=== PATIENT | male | born 1970 | race Caucasian/White ===

== ENCOUNTER 2021-05-25 09:47 | Emergency (ER) | payer OTHER, SELFPAY ==
[2021-05-25 10:14] VITALS: BP 166/105; PULSE 93; RESP 16; TEMP 36.3; O2SAT 99; BMI 20.3
--- NOTE | 2021-05-25 10:34 | ED_ITS ---
HPI - Extremity Problem General: Chief complaint: Extremity Injury, Upper Stated complaint: FB/hook in left arm Time Seen by Provider: 05/25/21 09:48 History of Present Illness: HPI Narrative: Patient was out fishing got a fishhook into left forearm. He is unable to remove by himself MD Complaint: other (Florien in left forearm) Onset (ago): hour(s) Associated symptoms: Deny fever(s) Review of Systems Const: Denies: fever(s) or chills Skin/Breast: Reports: other (Florien embedded in left forearm) Psych: Denies: anxiety or depression Physical Exam Const: COMMON NORMALS: no acute distress Psych: COMMON NORMALS: mental status grossly normal Skin: OTHER: Large fishhook embedded in left forearm I was able to remove it without difficulty after lidocaine prep I push fishhook through about an inch from the entry wound cut off the end and remove the fishhook back through the original entry wound. Patient has good movement of all distal extremities without difficulty. Bleeding controlled Procedures Foreign Body Removal Time Out Performed: yes Site: left and upper extremity Description of foreign body: fish hook Sedation/Analgesia: none Technique: manual removal and removal with forceps Confirmed by:: direct visualization Complications: none Neurovascular: normal distal pulse, normal capillary fill, distal light touch sensation intact, distal motor function normal and no signs of compartment syndrome Course Vital Signs: Vital signs: Vital Signs Temperature 97.3 F L 05/25/21 10:14 Pulse Rate 93 05/25/21 10:14 Respiratory Rate 16 05/25/21 10:14 Blood Pressure 166/105 05/25/21 10:14 Pulse Oximetry 99 05/25/21 10:14 Discharge Plan Discharge Patient Disposition: Home Clinical Impression: Fish hook in forearm Condition: Stable Prescriptions: New cephalexin 500 mg capsule 500 mg PO Q8H 7 Days Qty: 21 RF: 0 Discharge Orders: Discharge ED (Routine); Ordered 05/25/21 Ordered By: George Monique Discharge Diet: Usual diet Discharge Activity: Resume usual activity Patient Instructions: Puncture Wound (ED) Activity Restrictions/Additional Instructions: Follow-up with medical provider as directed. Take medications as prescribed. Return to the ER or your medical provider if condition worsens. Please read and understand discharge instructions. If any questions ask please. Coding Level of Care Code ED Community Development Manager for Shani Isbell
[2021-05-25] MEDS: tetanus-dipt-pertussis 0.5 mL SDV IM (10:39)
== END 2021-05-25 10:51 | disposition home or self-care (01) ==
PROVIDERS: Emergency Provider Nurse Practitioner Family
DX: S51.842A Puncture wound with foreign body of left forearm, initial encounter (principal); W26.8XXA Contact with other sharp object(s), not elsewhere classified, initial encounter; Z23 Encounter for immunization
CPT/HCPCS: 90471; 90715; 99282

== ENCOUNTER 2022-08-07 14:32 | Emergency (ER) | payer OTHER, SELFPAY ==
[2022-08-07 14:40] VITALS: BP 159/85; PULSE 86; RESP 16; TEMP 36.9; O2SAT 99; BMI 20.3
--- NOTE | 2022-08-07 16:25 | XRR_ITS ---
PROCEDURE INFORMATION: Exam: XR Right Elbow Exam date and time: 08/07/2022 4:28 PM Age: 52 years old Clinical indication: Swelling; Elbow; Right; Additional info: Cellulitis/abscess TECHNIQUE: Imaging protocol: Radiologic exam of the Right elbow. Views: 1 or 2 views. COMPARISON: No relevant prior studies available. FINDINGS: Bones/joints: Mild disc triceps tendon degenerative calcification. Soft tissues: Normal. XR/XR elbow RT 2V [id number] IMPRESSION: 1. No acute findings. 2. Mild disc triceps tendon degenerative calcification.
[2022-08-07 16:52] LABS: Basophils # 0.1 10^3/uL (0.0-0.1); Basophils % 0.6 %; Eosinophils # 0.3 10^3/uL (0.0-0.8); Eosinophils % 3.4 %; Hematocrit 45.1 % (42.0-52.0); Hemoglobin 14.7 g/dL (11.7-16.6); Lymphocytes # 3.9 10^3/uL (0.8-4.8); Lymphocytes % 38.8 %; Mean Corpuscular HGB Conc 32.6 g/dL (30.0-36.0); Mean Corpuscular Hemoglobin 29.3 pg (28.0-34.0); Mean Corpuscular Volume 89.8 fl (80-94); Mean Platelet Volume 9.1 fL (7.4-10.4); Monocytes # 0.8 10^3/uL (0.2-0.9); Monocytes % 7.6 %; Neutrophils # 4.88 10^3/uL (1.8-7.7); Neutrophils % 49.1 %; Nucleated Red Blood Cells % 0 %; Platelet Count 363 10^3/cmm (130-400); Red Blood Count 5.02 10^6/uL (4.1-5.3); Red Cell Distribution Width 13.1 % (12.1-15.1); White Blood Count 9.9 10^3/uL (4.0-10.0)
[2022-08-07 17:20] LABS: Alanine Aminotransferase 35 U/L (0-41); Albumin Level 3.9 g/dL (3.5-5.2); Alkaline Phosphatase 117 U/L (40-130); Anion Gap 13.6 (5-19); Aspartate Amino Transferase 25 U/L (0-40); Blood Urea Nitrogen 12 mg/dL (6-20); Calcium 9.3 mg/dL (8.5-10.5); Carbon Dioxide 30 mmol/L (22-29); Chloride 98 mmol/L (98-107); Globulin 3.4 g/dL (1.3-4.6); Glomerular Filtration Rate 118.9 mL/min (90-130); Glucose 123 mg/dL (65-115); Lactate (Lactic Acid level) 2.1 mmol/L (0.5-2.2); Osmolality Calculated 287 mOsm/kg (285-295); Potassium 3.6 mmol/L (3.5-5.1); Sodium 138 mmol/L (136-145); Total Bilirubin 0.3 mg/dL (0.15-1.2); Total Protein 7.3 g/dL (6.6-8.7)
[2022-08-07] MEDS: clindamycin 600 MG/50 ML PREMIX 100 MG IV (17:44)
--- NOTE | 2022-08-07 17:51 | W.ED.WOUNDLC ---
Documented by User: Es Goldstein, GUIDANCE AND CONTROL SYSTEM ENGINEER-C 08/07/22 18:37 HPI - Wound/Laceration General: Chief Complaint: Wound/Laceration Stated Complaint: arm abnormality Time Seen by Provider: 08/07/22 15:57 History of Present Illness: 52-year-old male is in today for an abscess on his arm. He reports that he is a diabetic. He reports that he recently got a tattoo on his right forearm and then shortly after that he was working outside and got poison pam in the area of the tattoo. He reports that he must have scratched one of the sores and it became infected. He reports that for almost a week on his right forearm he has had an infected wound. He denies any fever, chills, nausea, vomiting. He reports that his blood sugars have been running okay at home. He reports that the wound is oozing and draining. He denies significant pain but is starting to feel a little more pain in the arm and even some stiffness in the joint of the elbow and the wrist. Associated symptoms: Denies chills or fever(s) Review of Systems Const: Reports: body aches; Denies: fever(s) or chills Card: Denies: chest pain, palpitations or irregular heart rhythm Resp: Denies: dyspnea, productive cough or non-productive cough Musc: Reports: joint stiffness (Right elbow and right wrist) Skin/Breast: Reports: erythema, skin swelling and sores Physical Exam Const: COMMON NORMALS: no acute distress, patient oriented x3 and alert Resp: COMMON NORMALS: normal respiratory effort, No use of accessory muscles and clear to auscultation bilaterally AUSCULTATION: clear to auscultation bilaterally Cardio: COMMON NORMALS: regular rate, regular rhythm, S1 normal heart sound present and S2 normal heart sound present RATE: regular rate RHYTHM: regular rhythm HEART SOUNDS: S1 normal heart sound present and S2 normal heart sound present Extremity: NARRATIVE EXTREMITY EXAM: Right forearm just distal to the elbow there is an approximate 3 cm diameter wound. There is mild surrounding erythema and swelling. The wound is covered with whitish-martinez eschar. Neuro: COMMON NORMALS: patient oriented x3 SENSORIUM/ORIENTATION: Yes alert Procedures Abscess I/D Site: upper extremity (Right forearm) Sedation/analgesia: none Local Anesthetic: lidocaine 1% (1.5 cc) Technique: incised with #11 blade (The wound is mostly open but the 11 blade is used to debride some of the eschar) Amount of fluid expressed (mL): 0.25 Irrigation: Yes (Irrigated with normal saline flushes x2) Course Vital Signs: Vital signs: Vital Signs Temperature 98.5 F 08/07/22 14:40 Pulse Rate 87 08/07/22 18:30 Respiratory Rate 16 08/07/22 14:40 Blood Pressure 134/78 08/07/22 18:30 Pulse Oximetry 99 08/07/22 14:40 Oxygen Delivery Me thod 08/07/22 14:40 MDM - Wound/Laceration Medical Decision Making Patient is a diabetic patient in today for cellulitis and abscess. Given the increased arm pain and joint stiffness and the proximity of the abscess to the patient's elbow an x-ray was done. Labs were done patient's white blood cell count is within normal limits. Lactic is normal. Wound is debrided there is very little drainage to be expressed. Patient tolerated this well. wound is dressed with a nonstick dressing. 1 dose of IV clindamycin is administered in ER today. Patient will start clindamycin p.o. tomorrow. Advised him to follow-up with his PCP next week for continued monitoring and treatment. Return to the ER for any new or worsening symptoms including increased pain, fever, chills, nausea, vomiting. Patient verbalized understanding of all discharge instructions. Lab Data : 08/07/22 16:38 08/07/22 16:38 Radiology Impressions Elbow X-Ray 08/07/22 16:25 IMPRESSION: 1. No acute findings. 2. Mild disc triceps tendon degenerative calcification. Laboratory Results WBC 9.9 10^3/uL (4.0-10.0) 08/07/22 16:38 RBC 5.02 10^6/uL (4.1-5.3) 08/07/22 16:38 Hgb 14.7 g/dL (11.7-16.6) 08/07/22 16:38 Hct 45.1 % (42.0-52.0) 08/07/22 16:38 MCV 89.8 fl (80-94) 08/07/22 16:38 MCH 29.3 pg (28.0-34.0) 08/07/22 16:38 MCHC 32.6 g/dL (30.0-36.0) 08/07/22 16:38 RDW 13.1 % (12.1-15.1) 08/07/22 16:38 Plt Count 363 10^3/cmm (130-400) 08/07/22 16:38 MPV 9.1 fL (7.4-10.4) 08/07/22 16:38 Neut % (Auto) 49.1 % 08/07/22 16:38 Lymph % (Auto) 38.8 % 08/07/22 16:38 [place] % (Auto) 7.6 % 08/07/22 16:38 Eos % (Auto) 3.4 % 08/07/22 16:38 Baso % (Auto) 0.6 % 08/07/22 16:38 Neut # (Auto) 4.88 10^3/uL (1.8-7.7) 08/07/22 16:38 Lymph # (Auto) 3.9 10^3/uL (0.8-4.8) 08/07/22 16:38 [place] # (Auto) 0.8 10^3/uL (0.2-0.9) 08/07/22 16:38 Eos # (Auto) 0.3 10^3/uL (0.0-0.8) 08/07/22 16:38 Baso # (Auto) 0.1 10^3/uL (0.0-0.1) 08/07/22 16:38 Nucleated RBC % (auto) 0 % 08/07/22 16:38 Nucleated RBCs # 0.0 /100WBC 08/07/22 16:38 Sodium 138 mmol/L (136-145) 08/07/22 16:38 Potassium 3.6 mmol/L (3.5-5.1) 08/07/22 16:38 Chloride 98 mmol/L (98-107) 08/07/22 16:38 Carbon Dioxide 30 mmol/L (22-29) H 08/07/22 16:38 Anion Gap 13.6 (5-19) 08/07/22 16:38 BUN 12 mg/dL (6-20) 08/07/22 16:38 Creatinine 0.7 mg/dL (0.7-1.2) 08/07/22 16:38 GFR Calculation 118.9 mL/min (90-130) 08/07/22 16:38 Glucose 123 mg/dL (65-115) H 08/07/22 16:38 Calculated Osmolality 287 mOsm/kg (285-295) 08/07/22 16:38 Lactate 2.1 mmol/L (0.5-2.2) 08/07/22 16:38 Calcium 9.3 mg/dL (8.5-10.5) 08/07/22 16:38 Total Bilirubin 0.3 mg/dL (0.15-1.2) 08/07/22 16:38 AST 25 U/L (0-40) 08/07/22 16:38 ALT 35 U/L (0-41) 08/07/22 16:38 Alkaline Phosphatase 117 U/L (40-130) 08/07/22 16:38 Total Protein 7.3 g/dL (6.6-8.7) 08/07/22 16:38 Albumin 3.9 g/dL (3.5-5.2) 08/07/22 16:38 Globulin 3.4 g/dL (1.3-4.6) 08/07/22 16:38 Discharge Plan Discharge Patient Disposition: Home Clinical Impression: Abscess Condition: Stable Prescriptions: New Cleocin HCl 300 mg capsule 300 mg PO Q8H 7 Days Qty: 21 0RF Discharge Orders: Discharge ED (Routine); Ordered 08/07/22 Ordered By: Es Goldstein Discharge Diet: Usual diet Discharge Activity: Resume usual activity Patient Instructions: Opioid Safety Activity Restrictions/Additional Instructions: Take antibiotic as directed starting tomorrow. Follow-up with primary care provider next week for continued monitoring and treatment. Return to the ER for any new or worsening symptoms including increased pain, increased drainage, nausea, vomiting, fever, chills. I recommend taking a probiotic while on clindamycin. Monitor your blood sugars closely at home. Stand Alone Forms: Work/School Release Coding Level of Care Code ED Neurology Physician Assistant for Margaritog Fwd Exam Expanded Problem Focused Documented by User: Alli Abel DO 08/08/22 18:41 HPI - Wound/Laceration General: Chief Complaint: Wound/Laceration Stated Complaint: arm abnormality Time Seen by Provider: 08/07/22 15:57 Course Vital Signs: Vital signs: Vital Signs Temperature 98.5 F 08/07/22 14:40 Pulse Rate 87 08/07/22 18:30 Respiratory Rate 16 08/07/22 14:40 Blood Pressure 134/78 08/07/22 18:30 Pulse Oximetry 99 08/07/22 14:40 Oxygen Delivery Me thod 08/07/22 14:40 MDM - Wound/Laceration Medical Decision Making Patient is a diabetic patient in today for cellulitis and abscess. Given the increased arm pain and joint stiffness and the proximity of the abscess to the patient's elbow an x-ray was done. Labs were done patient's white blood cell count is within normal limits. Lactic is normal. Wound is debrided there is very little drainage to be expressed. Patient tolerated this well. wound is dressed with a nonstick dressing. 1 dose of IV clindamycin is administered in ER today. Patient will start clindamycin p.o. tomorrow. Advised him to follow-up with his PCP next week for continued monitoring and treatment. Return to the ER for any new or worsening symptoms including increased pain, fever, chills, nausea, vomiting. Patient verbalized understanding of all discharge instructions. Chart reviewed and patient discussed with midlevel. Agree with assessment and plan. Medical Records I reviewed the patient's medical records. Lab Data I reviewed the patient's lab results. : 08/07/22 16:38 08/07/22 16:38 Radiology Impressions Elbow X-Ray 08/07/22 16:25 IMPRESSION: 1. No acute findings. 2. Mild disc triceps tendon degenerative calcification. Laboratory Results WBC 9.9 10^3/uL (4.0-10.0) 08/07/22 16:38 RBC 5.02 10^6/uL (4.1-5.3) 08/07/22 16:38 Hgb 14.7 g/dL (11.7-16.6) 08/07/22 16:38 Hct 45.1 % (42.0-52.0) 08/07/22 16:38 MCV 89.8 fl (80-94) 08/07/22 16:38 MCH 29.3 pg (28.0-34.0) 08/07/22 16:38 MCHC 32.6 g/dL (30.0-36.0) 08/07/22 16:38 RDW 13.1 % (12.1-15.1) 08/07/22 16:38 Plt Count 363 10^3/cmm (130-400) 08/07/22 16:38 MPV 9.1 fL (7.4-10.4) 08/07/22 16:38 Neut % (Auto) 49.1 % 08/07/22 16:38 Lymph % (Auto) 38.8 % 08/07/22 16:38 [place] % (Auto) 7.6 % 08/07/22 16:38 Eos % (Auto) 3.4 % 08/07/22 16:38 Baso % (Auto) 0.6 % 08/07/22 16:38 Neut # (Auto) 4.88 10^3/uL (1.8-7.7) 08/07/22 16:38 Lymph # (Auto) 3.9 10^3/uL (0.8-4.8) 08/07/22 16:38 [place] # (Auto) 0.8 10^3/uL (0.2-0.9) 08/07/22 16:38 Eos # (Auto) 0.3 10^3/uL (0.0-0.8) 08/07/22 16:38 Baso # (Auto) 0.1 10^3/uL (0.0-0.1) 08/07/22 16:38 Nucleated RBC % (auto) 0 % 08/07/22 16:38 Nucleated RBCs # 0.0 /100WBC 08/07/22 16:38 Sodium 138 mmol/L (136-145) 08/07/22 16:38 Potassium 3.6 mmol/L (3.5-5.1) 08/07/22 16:38 Chloride 98 mmol/L (98-107) 08/07/22 16:38 Carbon Dioxide 30 mmol/L (22-29) H 08/07/22 16:38 Anion Gap 13.6 (5-19) 08/07/22 16:38 BUN 12 mg/dL (6-20) 08/07/22 16:38 Creatinine 0.7 mg/dL (0.7-1.2) 08/07/22 16:38 GFR Calculation 118.9 mL/min (90-130) 08/07/22 16:38 Glucose 123 mg/dL (65-115) H 08/07/22 16:38 Calculated Osmolality 287 mOsm/kg (285-295) 08/07/22 16:38 Lactate 2.1 mmol/L (0.5-2.2) 08/07/22 16:38 Calcium 9.3 mg/dL (8.5-10.5) 08/07/22 16:38 Total Bilirubin 0.3 mg/dL (0.15-1.2) 08/07/22 16:38 AST 25 U/L (0-40) 08/07/22 16:38 ALT 35 U/L (0-41) 08/07/22 16:38 Alkaline Phosphatase 117 U/L (40-130) 08/07/22 16:38 Total Protein 7.3 g/dL (6.6-8.7) 08/07/22 16:38 Albumin 3.9 g/dL (3.5-5.2) 08/07/22 16:38 Globulin 3.4 g/dL (1.3-4.6) 08/07/22 16:38 Discharge Plan Discharge Patient Disposition: Home Clinical Impression: Abscess Condition: Stable Prescriptions: New Cleocin HCl 300 mg capsule 300 mg PO Q8H 7 Days Qty: 21 0RF Discharge Orders: Discharge ED (Routine); Ordered 08/07/22 Ordered By: Es Goldstein Discharge Diet: Usual diet Discharge Activity: Resume usual activity Patient Instructions: Opioid Safety Activity Restrictions/Additional Instructions: Take antibiotic as directed starting tomorrow. Follow-up with primary care provider next week for continued monitoring and treatment. Return to the ER for any new or worsening symptoms including increased pain, increased drainage, nausea, vomiting, fever, chills. I recommend taking a probiotic while on clindamycin. Monitor your blood sugars closely at home. Stand Alone Forms: Work/School Release Coding Level of Care Code ED Neurology Physician Assistant for Shani Fwd Exam Expanded Problem Focused
[2022-08-07 18:30] VITALS: BP 134/78; PULSE 87
--- NOTE | 2022-08-10 16:23 | PC.NURSE ---
pc to pt no answer left voicemail with call back number to contact us deejay.
--- NOTE | 2022-08-11 11:02 | PC.NURSE ---
Called in rx for Bactrim DS to [facility] in [place], [place]. Rx for Bactrim DS one tab BID x 10 days. Called pt and informed him that blood cultures were positive and that he can belt picker the rx later today.
== END 2022-08-07 18:34 | disposition home or self-care (01) ==
PROVIDERS: Emergency Provider Nurse Practitioner Family
DX: L02.413 Cutaneous abscess of right upper limb (principal)
CPT/HCPCS: 10060; 73070; 80053; 83605; 85025; 87070; 87075; 87077; 87186; 87205; 96374; 99284; J3490

== ENCOUNTER 2025-02-27 09:12 | Emergency (ER) | payer BC, SELFPAY ==
[2025-02-27 09:21] VITALS: BP 150/85; PULSE 94; RESP 18; TEMP 36.7; O2SAT 95; BMI 20.3
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
[2025-02-27] MEDS: HYDROcodone-acetaminophen 5-325 mg Tablet 1 TAB PO (10:27)
[2025-02-27 11:22] VITALS: BP 148/82; PULSE 78; O2SAT 98
== END 2025-02-27 11:23 | disposition home or self-care (01) ==
PROVIDERS: Emergency Provider Physician Assistant
DX: S70.01XA Contusion of right hip, initial encounter (principal); S13.9XXA Sprain of joints and ligaments of unspecified parts of neck, initial encounter; V86.99XA Unspecified occupant of other special all-terrain or other off-road motor vehicle injured in nontraffic accident, initial encounter; Z79.84 Long term (current) use of oral hypoglycemic drugs; Z79.4 Long term (current) use of insulin
CPT/HCPCS: 72125; 72192; 73502; 99284; J9999